=== PATIENT | female | born 1980 | race African-American/Black ===

== ENCOUNTER 2018-04-27 13:14 | Emergency (ER) | payer BC, OTHER ==
[~2018-04-27] VITALS: Ht 162.6 cm; Wt 68.5 kg
[2018-04-27] MEDS ORDERED: ACCUNEB SO1.25 MG/1 INH (13:42)
[2018-04-27 14:05] LABS: URINE BILIRUBIN NEGATIVE (Negative); URINE BLOOD 2+ (Negative); URINE CLARITY CLEAR; URINE COLOR YELLOW; URINE GLUCOSE-RANDOM* NEGATIVE (Negative); URINE KETONES NEGATIVE (Negative); URINE LEUKOCYTES-REFLEX NEGATIVE (Negative); URINE NITRITE-REFLEX NEGATIVE (Negative); URINE PROTEIN (DIPSTICK) NEGATIVE (Negative); URINE SPECIFIC GRAVITY 1.025 (1.005-1.035); URINE UROBILINOGEN 0.2 E.U./dl (0.2-1.0)
[2018-04-27 14:17] LABS: BACTERIA-REFLEX 1-9 Few /HPF (None Seen); CASTS None Seen /LPF (None Seen); CRYSTALS None Seen /LPF (None Seen); SQUAMOUS 0-3 Few /LPF (0-3); URINE RBC 0-2 Rare /HPF (0-2); URINE WBC-REFLEX None Seen /HPF (0-5)
[2018-04-27 15:27] VITALS: BP 96/49
[2018-04-27] MEDS ORDERED: KEFLEX500 M1 PO (15:31)
[2018-04-27] MEDS ORDERED: PHENAZOPYRIDIN200 M2 PO (15:31)
== END 2018-04-27 16:05 | disposition home or self-care (01) ==
LOC: ER 13:14
PROVIDERS: Emergency Medicine
DX: N39.0 Urinary tract infection, site not specified (principal); N94.6 Dysmenorrhea, unspecified; Z87.42 Personal history of other diseases of the female genital tract; Z88.0 Allergy status to penicillin